=== PATIENT | male | born 1980 | race Caucasian/White ===

== ENCOUNTER 2018-05-04 09:48 | Day surgery (SDC) | payer OTHER ==
[2018-04-30 13:23] VITALS: BMI 35.2
[~2018-05-04 09:48] MED LIST: LACTATED RINGERS 1,000 ML IV SCH; LIDOCAINE 1% 20 ML VIAL (10MG/ML) FOR IV START INTRADERMA PRN
[2018-05-04 10:22] VITALS: TEMP 96.9
[2018-05-04] MEDS ORDERED: PROPOFOL 10 MG/ML 20 ML VIAL IV ONE (11:05)
--- NOTE | 2018-05-04 11:44 | P.PCN ---
Date of Procedure: 05/04/18 Procedure(s) Performed: Procedures: 1. Esophagogastroduodenoscopy and biopsy. 2. Colonoscopy and biopsy. Preoperative diagnosis: Chronic gastroesophageal reflux disease and chronic diarrhea and history of Crohn's disease. Postoperative diagnosis: 1. Small hiatal hernia and low-grade distal esophagitis. 2. Mild antral gastritis. 3. Normal colon and terminal ileum. 4. Biopsies obtained from the duodenum, antrum, esophagus, terminal ileum and random colon. Preparation: HalfLytely prep. Sedation: Was provided by anesthesia. Brief clinical history: The patient is a 37-year-old male who I have evaluated last month regarding history of Crohn's disease and family history of Crohn's disease in his mother and grandmother. The patient also has chronic reflux symptoms. He reported crampy abdominal pains and diarrhea. He, apparently, was never treated for Crohn's and has been following a bland diet and avoiding trigger foods. Reported 2-3 bowel movements per day which are loose or watery more often than formed. He denies any alarm upper GI complaints. Procedure: With the patient on his left lateral decubitus position and after informed consent and adequate sedation, I passed the Olympus-GIF H1 90 video upper endoscope through the cricopharyngeus down the esophagus. GE junction was around 43 cm from the incisors and there was a small sliding hiatal hernia with low-grade distal esophagitis but no strictures or Falcon's esophagus. The endoscope was then passed into the stomach which was insufflated with air and inspected in detail including the retroflex view in the cardia. There was some mottling and erythema in the antrum but no ulcers or erosions. Pyloric channel, duodenal bulb, post bulbar area and descending duodenum appeared within normal limits. I obtained biopsies from the duodenum, antrum and esophagus then the endoscope was withdrawn and I proceeded with the colonoscopy. Perianal area did not show any fissures or fistulas. There were no masses felt on digital rectal examination. The Olympus CFH 190L video colonoscope was then inserted in the rectum in the usual fashion and advanced to the cecum. I intubated the ileocecal valve and examined the terminal ileum. Terminal ileum and colon appeared healthy with no edema, erythema, friability, ulceration, exudation or spontaneous bleeding. No polyps or tumors were seen or any obvious diverticular disease or other pathology. I obtained biopsies from the terminal ileum and randomly from the colon then I retroflexed the endoscope in the rectum before the endoscope was withdrawn. The patient tolerated the procedure well. Plan: The patient was reassured. Will await biopsy results. Further plans based on his course and biopsy results.
[2018-05-04 11:52] VITALS: RESP 16
[2018-05-04 12:04] VITALS: BP 118/79; PULSE 75
== END 2018-05-04 12:35 | disposition home or self-care (01) ==
LOC: ORWHC2ENDO 09:48
DX: K52.9 Noninfective gastroenteritis and colitis, unspecified (principal); K29.70 Gastritis, unspecified, without bleeding; K44.9 Diaphragmatic hernia without obstruction or gangrene; E78.5 Hyperlipidemia, unspecified; K21.0 Gastro-esophageal reflux disease with esophagitis; G47.33 Obstructive sleep apnea (adult) (pediatric); Z99.89 Dependence on other enabling machines and devices; Z87.891 Personal history of nicotine dependence; Z79.82 Long term (current) use of aspirin; Z79.899 Other long term (current) drug therapy; Z83.79 Family history of other diseases of the digestive system
CPT/HCPCS: 88305; 45380; 43239; J2704